=== PATIENT | female | born 1990 | race African-American/Black ===

== ENCOUNTER 2017-02-24 18:29 | Emergency (ER) | payer SELFPAY | END 2017-02-24 21:16 | disposition home or self-care (01) | LOC: D.ER 18:29 | DX: S02.5XXA Fracture of tooth (traumatic), initial encounter for closed fracture (principal); K02.9 Dental caries, unspecified ==

== ENCOUNTER 2017-04-04 15:15 | Emergency (ER) | payer SELFPAY | END 2017-04-04 15:34 | disposition left against medical advice (07) | LOC: D.ER 15:15 | DX: H92.09 Otalgia, unspecified ear (principal) ==

== ENCOUNTER 2017-05-19 18:08 | Emergency (ER) | payer BC | END 2017-05-19 19:18 | disposition home or self-care (01) | LOC: D.ER 18:08 | DX: J45.901 Unspecified asthma with (acute) exacerbation (principal) ==

== ENCOUNTER 2017-11-09 21:00 | Emergency (ER) | payer SELFPAY | END 2017-11-09 23:44 | disposition home or self-care (01) | LOC: D.ER 21:00 | DX: O26.892 Other specified pregnancy related conditions, second trimester (principal); Z3A.20 20 weeks gestation of pregnancy; S30.0XXA Contusion of lower back and pelvis, initial encounter; W07.XXXA Fall from chair, initial encounter; Y93.89 Activity, other specified; Y92.89 Other specified places as the place of occurrence of the external cause; J45.909 Unspecified asthma, uncomplicated ==

== ENCOUNTER 2017-11-28 13:51 | Inpatient (IN) | payer MEDICAID ==
[~2017-11-28] VITALS: Ht 167.6 cm; Wt 63.6 kg
--- NOTE | ~2017-11-28 | DS ---
PATIENT:MONICA HUTCHINSON :89 MEDICAL RECORD: [id number] DISCHARGE SUMMARY ADMISSION DATE: 11/28/17 DISCHARGE DATE: 12/02/17 DATE OF ADMISSION: 11/28/2017 DATE OF DISCHARGE: 12/02/2017 ADMISSION DIAGNOSES: 1. Intrauterine at 23 weeks and 1 day. 2. Urinary tract infection, was suspected with early pyelonephritis. 3. Anemia. 4. History of high-grade squamous intraepithelial lesion. DISCHARGE DIAGNOSES: 1. Intrauterine at 23 and 5. 2. Urinary tract infection with suspected pyelo, resolving. 3. Anemia. 4. History of LGSIL. 5. Possible viral illness. HISTORY OF PRESENT ILLNESS: See the H&P in the chart. SUMMARY OF HOSPITALIZATION: The patient was admitted to the hospital with suspected early pyelo and given Invanz 1 gram daily. The patient continued to spike fevers in excess of 101, 48 hours into the therapy. The patient was switched to Rocephin. The patient defervesced on the Rocephin and at the time of discharge is complaining of some nausea and vomiting with diarrhea. The patient's CBC never showed a large shift and white blood cells, but early on did show preponderance of neutrophils. The urine grew out E. coli that had machado-sensitivity. Discharge medications will include Macrobid. The patient has been recommended to continue on a BRAT diet as she is tolerating p.o. at this time. She will follow up in the clinic on Tuesday. TRANSINT:[id number] Voice Confirmation ID: [id number] DOCUMENT ID: [id number] MIKE BONILLA MD at 1624 CC: [id number] DICTATION DATE: 12/02/17 1219 E D TECH: 12/02/17 1443 DIS IN 12/02/17 [facility] [address] [place] [address]
[2017-11-28 15:03] LABS: APPEARANCE HAZY (CLEAR); BILIRUBIN NEGATIVE (NEGATIVE); COLOR YELLOW (YELLOW); GLUCOSE 100 mg/dL (NEGATIVE); KETONE NEGATIVE (NEGATIVE); NITRITE POSITIVE (NEGATIVE); PROTEIN 1+ mg/dL (NEGATIVE); SPECIFIC GRAVITY 1.015 (1.005-1.020); UROBILINOGEN NORMAL (NORMAL)
[2017-11-28 15:05] LABS: BACTERIA MANY /hpf (NONE SEEN); MUCUS <1+ /lpf (NONE SEEN); RED CELLS - URINE 0-5 /hpf (0-5); WHITE CELLS - URINE 25-50 /hpf (0-5)
[2017-11-28 15:09] LABS: UDS - AMPHET NEGATIVE QUAL (NEGATIVE); UDS - BARB NEGATIVE QUAL (NEGATIVE); UDS - BENZO NEGATIVE QUAL (NEGATIVE); UDS - COCAINE NEGATIVE QUAL (NEGATIVE); UDS - OPIATE NEGATIVE QUAL (NEGATIVE); UDS - PCP NEGATIVE QUAL (NEGATIVE); UDS - THC NEGATIVE QUAL (NEGATIVE)
[2017-11-28 17:48] LABS: BASOPHILS 0 % (0-2); EOSINOPHILS 0.2 % (0-7); HEMATOCRIT 25.5 % (36.0-48.0); HEMOGLOBIN 7.9 g/dL (12-16); IMMATURE GRANULOCYTES 0.3 % (0-5); MCH 23.7 pg (26.0-34.0); MCV 76.6 fL (80.0-100.0); MEAN PLATELET VOLUME 10.4 fL (7.4-10.4); MONOCYTES 6.8 % (2-11); NEUTROPHILS 90.7 % (40-80); PLATELET COUNT 152 10x3/uL (130-400); RBC 3.33 10x6/uL (4.00-5.40); RDW 15.2 % (11.5-14.5); WBC 9.7 10x3/uL (4.8-10.8)
[2017-11-28 20:10] VITALS: BP 109/62; Ht 167.6 cm; Wt 63.6 kg
[2017-11-28] MEDS ORDERED: PRENAVITE1 TAB PO (20:22)
[2017-11-28] MEDS ORDERED: ACETAMINOPHEN325 MG PO (20:23)
[2017-11-29] VITALS (13 sets, daily range): BP systolic 90–116; BP diastolic 52–69
[2017-11-29 10:14] LABS: BASOPHILS 0.1 % (0-2); EOSINOPHILS 0.1 % (0-7); IMMATURE GRANULOCYTES 0.5 % (0-5); LYMPHOCYTES 2.3 % (15-50); MCH 24.9 pg (26.0-34.0); MCHC 32.2 g/dL (31.0-37.0); MCV 77.5 fL (80.0-100.0); MEAN PLATELET VOLUME 10.6 fL (7.4-10.4); MONOCYTES 8.4 % (2-11); NEUTROPHILS 88.6 % (40-80); PLATELET COUNT 141 10x3/uL (130-400); RDW 15.1 % (11.5-14.5); WBC 10.5 10x3/uL (4.8-10.8)
[2017-11-29 10:16] LABS: HEMATOCRIT 31.7 % (36.0-48.0); HEMOGLOBIN 10.2 g/dL (12-16); RBC 4.09 10x6/uL (4.00-5.40)
[2017-11-30 07:10] VITALS: BP 128/78
[2017-11-30 09:08] LABS: BASOPHILS 0.2 % (0-2); EOSINOPHILS 0.3 % (0-7); HEMATOCRIT 31.4 % (36.0-48.0); HEMOGLOBIN 10.1 g/dL (12-16); IMMATURE GRANULOCYTES 0.7 % (0-5); LYMPHOCYTES 3.3 % (15-50); MCH 24.7 pg (26.0-34.0); MCHC 32.2 g/dL (31.0-37.0); MCV 76.8 fL (80.0-100.0); MONOCYTES 6.6 % (2-11); NEUTROPHILS 88.9 % (40-80); PLATELET COUNT 144 10x3/uL (130-400); RBC 4.09 10x6/uL (4.00-5.40); RDW 15.4 % (11.5-14.5); WBC 9.8 10x3/uL (4.8-10.8)
[2017-11-30 09:59] LABS: APPEARANCE HAZY (CLEAR); BACTERIA FEW /hpf (NONE SEEN); BILIRUBIN NEGATIVE (NEGATIVE); COLOR YELLOW (YELLOW); GLUCOSE NEGATIVE (NEGATIVE); KETONE NEGATIVE (NEGATIVE); MUCUS <1+ /lpf (NONE SEEN); NITRITE NEGATIVE (NEGATIVE); PROTEIN 1+ mg/dL (NEGATIVE); SPECIFIC GRAVITY 1.015 (1.005-1.020)
[2017-11-30 12:40] VITALS: BP 93/54
[2017-11-30 17:25] VITALS: BP 95/58
[2017-11-30 19:34] VITALS: BP 87/50
[2017-12-01 01:50] VITALS: BP 137/55
[2017-12-01 05:36] VITALS: BP 96/55
[2017-12-01 07:24] LABS: BASOPHILS 0.5 % (0-2); EOSINOPHILS 0.9 % (0-7); HEMATOCRIT 30.3 % (36.0-48.0); HEMOGLOBIN 9.7 g/dL (12-16); IMMATURE GRANULOCYTES 1.3 % (0-5); LYMPHOCYTES 16.2 % (15-50); MCH 24.6 pg (26.0-34.0); MCV 76.7 fL (80.0-100.0); MEAN PLATELET VOLUME 10.5 fL (7.4-10.4); MONOCYTES 15.5 % (2-11); NEUTROPHILS 65.6 % (40-80); PLATELET COUNT 128 10x3/uL (130-400); RBC 3.95 10x6/uL (4.00-5.40); RDW 15.5 % (11.5-14.5)
[2017-12-01 07:30] VITALS: BP 102/62
[2017-12-01 07:52] LABS: WBC 5.5 10x3/uL (4.8-10.8)
[2017-12-01 20:09] VITALS: BP 95/52
[2017-12-02 00:13] VITALS: BP 88/50
[2017-12-02 04:54] VITALS: BP 75/45
[2017-12-02 07:57] VITALS: BP 98/54
[2017-12-02] MEDS ORDERED: MACROBID100 MG PO (14:46)
[2017-12-02] MEDS ORDERED: ZOFRAN ODT4 MG/UDTAB PO (14:47)
== END 2017-12-02 15:30 | disposition home or self-care (01) | DRG 781 ==
LOC: D.LDO 13:51 → D.ER 13:51 → EDSTATUS 14:14 → D.LD 18:55 → D.LDO 19:25 → D.LD 19:30
PROVIDERS: Obstetrics & Gynecology
DX: O23.02 Infections of kidney in pregnancy, second trimester (principal); B96.20 Unspecified Escherichia coli [E. coli] as the cause of diseases classified elsewhere; Z3A.23 23 weeks gestation of pregnancy; O99.012 Anemia complicating pregnancy, second trimester; B34.9 Viral infection, unspecified; O26.892 Other specified pregnancy related conditions, second trimester

== ENCOUNTER 2017-12-10 22:58 | Outpatient (CLI) | payer MEDICAID ==
[2017-11-28 20:10] VITALS: BMI 22.6
[~2017-12-10 22:58] MED LIST: ACETAMINOPHEN325 MG PO; MACROBID100 MG PO; PRENAVITE1 TAB PO; ZOFRAN ODT4 MG/UDTAB PO
== END 2017-12-11 02:37 | disposition home or self-care (01) ==
LOC: D.LDO 22:58 → D.LD 23:17 → D.LDO 12-11 02:37
DX: O26.892 Other specified pregnancy related conditions, second trimester (principal); Z3A.24 24 weeks gestation of pregnancy

== ENCOUNTER 2017-12-26 16:20 | Emergency (ER) | payer MEDICAID ==
[2017-11-28 20:10] VITALS: BMI 22.6
== END 2017-12-26 19:15 | disposition home or self-care (01) ==
LOC: D.ER 16:20
DX: J06.9 Acute upper respiratory infection, unspecified (principal); J20.9 Acute bronchitis, unspecified; J45.909 Unspecified asthma, uncomplicated; F17.200 Nicotine dependence, unspecified, uncomplicated

== ENCOUNTER → 2018-01-01 17:15 | Outpatient (CLI) | payer MEDICAID ==
[2017-11-28 20:10] VITALS: BMI 22.6
[2018-01-01 17:46] LABS: APPEARANCE CLEAR (CLEAR); BILIRUBIN NEGATIVE (NEGATIVE); COLOR YELLOW (YELLOW); GLUCOSE NEGATIVE (NEGATIVE); KETONE NEGATIVE (NEGATIVE); NITRITE NEGATIVE (NEGATIVE); PH 6.5 (5.0-6.0); PROTEIN NEGATIVE (NEGATIVE); UROBILINOGEN NORMAL (NORMAL)
== END | disposition home or self-care (01) ==
LOC: D.LDO 17:15
PROVIDERS: Obstetrics & Gynecology
DX: O26.892 Other specified pregnancy related conditions, second trimester (principal); Z3A.27 27 weeks gestation of pregnancy

== ENCOUNTER → 2018-01-04 14:30 | Outpatient (CLI) | payer MEDICAID ==
[2017-11-28 20:10] VITALS: BMI 22.6
== END | disposition home or self-care (01) ==
LOC: D.LDO 14:30
DX: O26.893 Other specified pregnancy related conditions, third trimester (principal); Z3A.28 28 weeks gestation of pregnancy

== ENCOUNTER → 2018-01-12 17:32 | Outpatient (CLI) | payer MEDICAID ==
[2017-11-28 20:10] VITALS: BMI 22.6
[2018-01-12 18:34] LABS: APPEARANCE CLEAR (CLEAR); COLOR YELLOW (YELLOW); SPECIFIC GRAVITY 1.005 (1.005-1.020)
[2018-01-12 18:35] LABS: BILIRUBIN NEGATIVE (NEGATIVE); GLUCOSE NEGATIVE (NEGATIVE); KETONE NEGATIVE (NEGATIVE); NITRITE NEGATIVE (NEGATIVE); PROTEIN NEGATIVE (NEGATIVE); RED CELLS - URINE 0-5 /hpf (0-5); UROBILINOGEN NORMAL (NORMAL); WHITE CELLS - URINE 0-5 /hpf (0-5)
[2018-01-12 18:36] LABS: EPITHELIAL CELLS 0-5 /hpf (0-5)
[2018-01-12 18:37] LABS: BACTERIA FEW /hpf (NONE SEEN)
== END | disposition home or self-care (01) ==
LOC: D.LDO 17:32
PROVIDERS: Obstetrics & Gynecology
DX: O26.893 Other specified pregnancy related conditions, third trimester (principal); Z3A.29 29 weeks gestation of pregnancy

== ENCOUNTER → 2018-01-16 09:46 | Outpatient (CLI) | payer MEDICAID ==
[2017-11-28 20:10] VITALS: BMI 22.6
== END | disposition home or self-care (01) ==
LOC: D.LDO 09:46
DX: O26.893 Other specified pregnancy related conditions, third trimester (principal); Z3A.30 30 weeks gestation of pregnancy

== ENCOUNTER → 2018-01-25 18:38 | Outpatient (CLI) | payer MEDICAID ==
[2017-11-28 20:10] VITALS: BMI 22.6
== END | disposition home or self-care (01) ==
LOC: D.LDO 18:38
DX: O26.899 Other specified pregnancy related conditions, unspecified trimester (principal); Z3A.00 Weeks of gestation of pregnancy not specified

== ENCOUNTER → 2018-01-26 13:45 | Outpatient (CLI) | payer MEDICAID ==
[2017-11-28 20:10] VITALS: BMI 22.6
[2018-01-26 15:56] LABS: APPEARANCE CLEAR (CLEAR); BILIRUBIN 2+ (NEGATIVE); COLOR YELLOW (YELLOW); GLUCOSE NEGATIVE (NEGATIVE); KETONE LARGE mg/dL (NEGATIVE); NITRITE NEGATIVE (NEGATIVE); PROTEIN NEGATIVE (NEGATIVE); UROBILINOGEN NORMAL (NORMAL)
== END | disposition home or self-care (01) ==
LOC: D.ER 13:45 → D.LDO 13:45
PROVIDERS: Obstetrics & Gynecology
DX: O26.893 Other specified pregnancy related conditions, third trimester (principal); Z3A.30 30 weeks gestation of pregnancy; R11.2 Nausea with vomiting, unspecified; M25.551 Pain in right hip; Z91.81 History of falling

== ENCOUNTER → 2018-02-24 20:30 | Outpatient (CLI) | payer MEDICAID ==
[2017-11-28 20:10] VITALS: BMI 22.6
[2018-02-24 21:32] LABS: APPEARANCE CLEAR (CLEAR); BILIRUBIN NEGATIVE (NEGATIVE); COLOR YELLOW (YELLOW); GLUCOSE NEGATIVE (NEGATIVE); KETONE NEGATIVE (NEGATIVE); NITRITE NEGATIVE (NEGATIVE); PROTEIN NEGATIVE (NEGATIVE); UROBILINOGEN NORMAL (NORMAL)
== END | disposition home or self-care (01) ==
LOC: D.LDO 20:30
PROVIDERS: Obstetrics & Gynecology
DX: O26.893 Other specified pregnancy related conditions, third trimester (principal); Z3A.35 35 weeks gestation of pregnancy

== ENCOUNTER 2018-03-05 02:23 | Outpatient (CLI) | payer MEDICAID ==
[2017-11-28 20:10] VITALS: BMI 22.6
== END 2018-03-05 03:51 | disposition home or self-care (01) ==
LOC: D.LDO 02:23
DX: O26.893 Other specified pregnancy related conditions, third trimester (principal); Z3A.36 36 weeks gestation of pregnancy

== ENCOUNTER → 2018-03-09 17:20 | Outpatient (CLI) | payer MEDICAID ==
[2017-11-28 20:10] VITALS: BMI 22.6
[2018-03-09 20:05] LABS: APPEARANCE CLEAR (CLEAR); BILIRUBIN NEGATIVE (NEGATIVE); COLOR YELLOW (YELLOW); GLUCOSE NEGATIVE (NEGATIVE); KETONE NEGATIVE (NEGATIVE); NITRITE NEGATIVE (NEGATIVE); PROTEIN NEGATIVE (NEGATIVE); SPECIFIC GRAVITY 1.005 (1.005-1.020); UROBILINOGEN NORMAL (NORMAL)
[2018-03-09 20:06] LABS: WHITE CELLS - URINE 0-5 /hpf (0-5)
[2018-03-09 20:07] LABS: BACTERIA FEW /hpf (NONE SEEN); EPITHELIAL CELLS 0-5 /hpf (0-5)
== END | disposition home or self-care (01) ==
LOC: D.LDO 17:20
PROVIDERS: Obstetrics & Gynecology
DX: O26.893 Other specified pregnancy related conditions, third trimester (principal); Z3A.37 37 weeks gestation of pregnancy

== ENCOUNTER 2018-03-10 11:35 | Inpatient (IN) | payer MEDICAID ==
[~2018-03-10] VITALS: Ht 167.6 cm; Wt 65.5 kg
[2018-03-10 13:37] LABS: HEMATOCRIT 34.6 % (36.0-48.0); HEMOGLOBIN 11.6 g/dL (12-16); MCH 27.4 pg (26.0-34.0); MCHC 33.5 g/dL (31.0-37.0); MCV 81.6 fL (80.0-100.0); MEAN PLATELET VOLUME 11.3 fL (7.4-10.4); RBC 4.24 10x6/uL (4.00-5.40); RDW 15.3 % (11.5-14.5); WBC 13.4 10x3/uL (4.8-10.8)
[2018-03-10 14:48] VITALS: BP 110/76; Ht 167.6 cm; Wt 65.5 kg
[2018-03-10 19:03] VITALS: BP 118/69
[2018-03-10 21:07] LABS: UDS - AMPHET NEGATIVE QUAL (NEGATIVE); UDS - BARB NEGATIVE QUAL (NEGATIVE); UDS - BENZO NEGATIVE QUAL (NEGATIVE); UDS - COCAINE NEGATIVE QUAL (NEGATIVE); UDS - OPIATE NEGATIVE QUAL (NEGATIVE); UDS - PCP NEGATIVE QUAL (NEGATIVE); UDS - THC NEGATIVE QUAL (NEGATIVE)
[2018-03-10 23:35] VITALS: BP 123/75
[2018-03-11 05:17] LABS: BASOPHILS 0.2 % (0-2); EOSINOPHILS 2.3 % (0-7); HEMATOCRIT 31.1 % (36.0-48.0); HEMOGLOBIN 10.2 g/dL (12-16); IMMATURE GRANULOCYTES 0.3 % (0-5); LYMPHOCYTES 13.3 % (15-50); MCHC 32.8 g/dL (31.0-37.0); MCV 82.3 fL (80.0-100.0); MEAN PLATELET VOLUME 10.9 fL (7.4-10.4); MONOCYTES 5.4 % (2-11); NEUTROPHILS 78.5 % (40-80); PLATELET COUNT 175 10x3/uL (130-400); RBC 3.78 10x6/uL (4.00-5.40); RDW 15.2 % (11.5-14.5); WBC 12.5 10x3/uL (4.8-10.8)
[2018-03-11 07:56] VITALS: BP 123/78
[2018-03-11 11:48] VITALS: BP 108/71
[2018-03-11 15:18] VITALS: BP 118/75
[2018-03-11 20:13] VITALS: BP 127/86
[2018-03-12 07:35] VITALS: BP 121/77
[2018-03-14 03:10] LABS: RAPID PLASMA REAGIN Non Reactive (Non Reactive)
== END 2018-03-12 12:43 | disposition home or self-care (01) | DRG 775 ==
LOC: D.LDO 11:35 → D.LD 12:50 → D.WS 03-11 17:15
PROVIDERS: Obstetrics & Gynecology
PROC: 10907ZC Drainage of Amniotic Fluid, Therapeutic from Products of Conception, Via Natural or Artificial Opening (ICD-10-PCS; principal; 2018-03-10)
PROC: 10E0XZZ Delivery of Products of Conception, External Approach (ICD-10-PCS; 2018-03-10)
DX: O69.81X0 Labor and delivery complicated by cord around neck, without compression, not applicable or unspecified (principal); Z3A.37 37 weeks gestation of pregnancy; Z37.0 Single live birth

== ENCOUNTER 2018-10-16 09:03 | Emergency (ER) | payer MEDICAID ==
[~2018-10-16] VITALS: Ht 167.6 cm; Wt 59.1 kg
[2018-10-16 09:10] VITALS: Ht 167.6 cm; Wt 59.1 kg
[2018-10-16] MEDS ORDERED: PHENERGAN25 M1 PO (09:12)
[2018-10-16 10:00] LABS: BASOPHILS 0.5 % (0-2); EOSINOPHILS 2.5 % (0-7); HEMATOCRIT 36.1 % (36.0-48.0); HEMOGLOBIN 12.3 g/dL (12-16); LYMPHOCYTES 18.1 % (15-50); MCH 28.4 pg (26.0-34.0); MCHC 34.1 g/dL (31.0-37.0); MCV 83.4 fL (80.0-100.0); MEAN PLATELET VOLUME 11.2 fL (7.4-10.4); MONOCYTES 4.4 % (2-11); NEUTROPHILS 74.5 % (40-80); RBC 4.33 10x6/uL (4.00-5.40); RDW 13.3 % (11.5-14.5); WBC 6.4 10x3/uL (4.8-10.8)
[2018-10-16 10:03] LABS: ALBUMIN 3.6 g/dL (3.4-5.0); ALKALINE PHOSPHATASE 46 U/L (46-116); ALT (SGPT) 25 U/L (10-68); BILIRUBIN - TOTAL 0.28 mg/dL (0.2-1.3); CALC OSMOLALITY 268 mosm/kg (275-300); CALCIUM 8.7 mg/dL (8.5-10.1); CARBON DIOXIDE 24.3 mmol/L (21.0-32.0); CHLORIDE - SERUM 101 mmol/L (98-107); CREATININE - SERUM 0.7 mg/dL (0.6-1.3); GLUCOSE 76 mg/dL (74-106); POTASSIUM - SERUM 3.3 mmol/L (3.5-5.1); PROTEIN - SERUM 7.9 g/dL (6.4-8.2); SODIUM 136 mmol/L (136-145); UREA NITROGEN 6 mg/dL (7-18); eGFR NON AFRICAN AMERICAN > 90 mL/min (90-120)
[2018-10-16 10:19] LABS: PLATELET COUNT 262 10x3/uL (130-400)
[2018-10-16 10:25] LABS: HCG - QUANTITATIVE (MATERNAL) 46913 mIU/mL
[2018-10-16 10:31] LABS: APPEARANCE CLEAR (CLEAR); BILIRUBIN NEGATIVE (NEGATIVE); COLOR YELLOW (YELLOW); GLUCOSE 250 mg/dL (NEGATIVE); KETONE SMALL mg/dL (NEGATIVE); NITRITE NEGATIVE (NEGATIVE); PROTEIN NEGATIVE (NEGATIVE); SPECIFIC GRAVITY 1.015 (1.005-1.020); UROBILINOGEN NORMAL (NORMAL)
[2018-10-16 11:20] VITALS: BP 105/63
== END 2018-10-16 11:20 | disposition home or self-care (01) ==
LOC: D.ER 09:03
PROVIDERS: Family Medicine
DX: O26.891 Other specified pregnancy related conditions, first trimester (principal); Z3A.12 12 weeks gestation of pregnancy; R10.30 Lower abdominal pain, unspecified

== ENCOUNTER 2018-10-25 01:04 | Emergency (ER) | payer MEDICAID ==
[~2018-10-25] VITALS: Ht 167.6 cm; Wt 58.2 kg
[~2018-10-25 01:04] MED LIST changes: +PHENERGAN25 M1 PO
[2018-10-25 01:11] VITALS: Ht 167.6 cm; Wt 58.2 kg
[2018-10-25 01:55] LABS: BASOPHILS 0.6 % (0-2); EOSINOPHILS 4.8 % (0-7); HEMATOCRIT 35.2 % (36.0-48.0); HEMOGLOBIN 11.8 g/dL (12-16); IMMATURE GRANULOCYTES 0.2 % (0-5); LYMPHOCYTES 23.7 % (15-50); MCH 28.1 pg (26.0-34.0); MCHC 33.5 g/dL (31.0-37.0); MCV 83.8 fL (80.0-100.0); MEAN PLATELET VOLUME 10.6 fL (7.4-10.4); MONOCYTES 6.9 % (2-11); NEUTROPHILS 63.8 % (40-80); PLATELET COUNT 254 10x3/uL (130-400); RDW 13.3 % (11.5-14.5); WBC 6.6 10x3/uL (4.8-10.8)
[2018-10-25 02:00] LABS: APPEARANCE CLEAR (CLEAR); COLOR YELLOW (YELLOW); NITRITE NEGATIVE (NEGATIVE)
[2018-10-25 02:01] LABS: BILIRUBIN NEGATIVE (NEGATIVE); GLUCOSE 100 mg/dL (NEGATIVE); KETONE NEGATIVE (NEGATIVE); PROTEIN NEGATIVE (NEGATIVE); UROBILINOGEN NORMAL (NORMAL)
[2018-10-25 02:02] LABS: BACTERIA FEW /hpf (NONE SEEN); EPITHELIAL CELLS 0-5 /hpf (0-5); MUCUS <1+ /lpf (NONE SEEN); RED CELLS - URINE 0-5 /hpf (0-5); WHITE CELLS - URINE 0-5 /hpf (0-5)
[2018-10-25 02:14] LABS: ALBUMIN 3.2 g/dL (3.4-5.0); ALKALINE PHOSPHATASE 42 U/L (46-116); ALT (SGPT) 23 U/L (10-68); BILIRUBIN - TOTAL 0.23 mg/dL (0.2-1.3); CALC OSMOLALITY 269 mosm/kg (275-300); CALCIUM 8.1 mg/dL (8.5-10.1); CARBON DIOXIDE 21.7 mmol/L (21.0-32.0); CHLORIDE - SERUM 102 mmol/L (98-107); CREATININE - SERUM 0.6 mg/dL (0.6-1.3); POTASSIUM - SERUM 3.5 mmol/L (3.5-5.1); PROTEIN - SERUM 7.2 g/dL (6.4-8.2); SODIUM 137 mmol/L (136-145); UREA NITROGEN 6 mg/dL (7-18); eGFR NON AFRICAN AMERICAN > 90 mL/min (90-120)
[2018-10-25 02:18] LABS: GLUCOSE 63 mg/dL (74-106)
[2018-10-25] MEDS ORDERED: PHENERGAN25 MG RC (04:31)
[2018-10-25 04:37] VITALS: BP 125/65
== END 2018-10-25 04:38 | disposition home or self-care (01) ==
LOC: D.ER 01:04
PROVIDERS: Family Medicine
DX: O26.851 Spotting complicating pregnancy, first trimester (principal); Z3A.14 14 weeks gestation of pregnancy; R10.30 Lower abdominal pain, unspecified; R11.2 Nausea with vomiting, unspecified